=== PATIENT | male | born 1970 | race Caucasian/White ===

== ENCOUNTER 2022-04-07 17:18 | Emergency (ER) | payer SELFPAY ==
[~2022-04-07] VITALS: Ht 172.7 cm; Wt 87.0 kg
[2022-04-07 17:24] VITALS: BP 141/90
== END 2022-04-07 19:54 | disposition home or self-care (01) ==
LOC: ER 17:18
DX: U07.1 COVID-19 (principal)
CPT/HCPCS: 71045; 99283